=== PATIENT | male | born 1970 | race Hispanic/Latino ===

== ENCOUNTER → 2024-06-13 | Outpatient (CLI) | payer OTHER ==
--- NOTE | 2024-06-13 10:52 | HMCIMG ---
Exam Type: CERV SPINE 2-3VWS Clinical Information: NECK PAIN Comparison: None FINDINGS: C1 through the top of T1 are seen on the lateral view. The prevertebral soft tissues are normal. No fractures or dislocations are seen. There are spondylytic changes and there are degenerative changes of the facet joints. There is narrowing of the C5-6 disc consistent with degenerative disc disease. The other disc spaces are intact. There is straightening consistent with spasm. IMPRESSION: Degenerative changes as noted.
--- NOTE | 2024-06-13 11:08 | HMCIMG ---
Exam Type: LUMBAR SPINE 2-3VWS Clinical Information: LOW BACK PAIN Comparison: None Findings: Exam of the lumbosacral spine demonstrates no evidence of fracture or subluxation. There are mild spondylitic changes. The facet joints show minimal degenerative changes. The alignment of the spine is normal. The disc spaces are intact. Bone mineralization is normal. Impression: Spondylitic changes and degenerative changes of the apophyseal joints as noted.
== END | disposition home or self-care (01) ==
LOC: RAH 06-11 17:08
PROVIDERS: ATTEND Physical Therapist
DX: M47.812 Spondylosis without myelopathy or radiculopathy, cervical region (principal); M48.02 Spinal stenosis, cervical region; M47.816 Spondylosis without myelopathy or radiculopathy, lumbar region; M54.2 Cervicalgia; M54.50 Low back pain, unspecified
CPT/HCPCS: 72040; 72100